=== PATIENT | female | born 2000 | race Two or more races ===

== ENCOUNTER 2023-11-01 14:35 | Emergency (ER) | payer MEDICAID, OTHER ==
[~2023-11-01] VITALS: Ht 175.3 cm; Wt 59.2 kg
[2023-11-01] MEDS: ONDANSETRON ODT 4 MG TAB PO ONE (15:30)
[2023-11-01] MEDS ORDERED: ZOFR4T PO (17:01)
[2023-11-01] MEDS ORDERED: AUG875T PO (17:01)
[2023-11-01] MEDS ORDERED: IBUP-1454 PO (17:01)
[2023-11-01 20:15] VITALS: BP 110/77; PULSE 66; RESP 13; TEMP 98.2; O2SAT 100
== END 2023-11-01 20:23 | disposition home or self-care (01) ==
LOC: ER 14:35
DX: K04.7 Periapical abscess without sinus (principal); M54.2 Cervicalgia
CPT/HCPCS: 76536

== ENCOUNTER 2024-05-26 14:48 | Emergency (ER) | payer MEDICAID ==
[~2024-05-26] VITALS: Ht 175.3 cm; Wt 59.0 kg
[~2024-05-26 14:48] MED LIST: AUG875T PO; IBUP-1454 PO; LIDO2SOL26 MT; METH4PAK PO; PENI500T2 PO; ZOFR4T PO
[2024-05-26 15:08] VITALS: BP 113/70; PULSE 73; RESP 18; O2SAT 100
[2024-05-26] MEDS: SODIUM CHLORIDE 0.9% 1,000 ML IV ONE (15:30)
[2024-05-26] MEDS: PROCHLORPERAZINE EDISYLATE 5 MG/ML 2ML VIAL IV ONE (15:31)
[2024-05-26] MEDS: PANTOPRAZOLE 40 MG/10 ML VIAL INJ IV ONE (15:31)
[2024-05-26 15:45] LABS: Basophils # (auto) 0.1 10 ^3/uL (0-0.2); Basophils % (auto) 0.4 % (0.0-2.0); Eosinophils # (auto) 0.1 10 ^3/uL (0-0.8); Eosinophils % (auto) 0.4 % (0.0-7.0); Hematocrit 37.3 % (36.0-46.0); Hemoglobin 12.4 g/dL (12.2-16.2); Lymphocytes # (auto) 1.4 10 ^3/uL (0.4-5.4); Lymphocytes % (auto) 8.3 % (10.0-50.0); Mean Corpuscular Hemoglobin 29.2 pg (28.0-32.0); Mean Corpuscular Hgb Conc. 33.2 g/dL (32.0-36.0); Monocytes % (auto) 5.6 % (0.0-12.0); Neutrophils # (auto) 14.6 10 ^3/uL (1.6-8.6); Neutrophils % (auto) 85.3 % (37.0-80.0); Platelet Count (auto) 276 10^3/uL (140-450); Red Blood Cells 4.23 10^6/uL (4.0-5.20); Red Cell Distribution Width 15.3 % (11.8-14.3); White Blood Cell 17.2 10^3/uL (4.4-10.8)
[2024-05-26 15:56] LABS: Chloride 106 mmol/L (98-107); Potassium 3.4 mmol/L (3.5-5.1); Sodium 140 mmol/L (136-145)
[2024-05-26 15:57] LABS: Anion Gap 10 (5-15); Calcium 10.2 mg/dL (8.7-10.4); Carbon Dioxide 24 mmol/L (20-31)
[2024-05-26 16:02] LABS: BUN/Creatinine Ratio 12.2 (10.0-20.0); Blood Urea Nitrogen 11 mg/dL (9-23); Glucose 103 mg/dL (74-106)
[2024-05-26 18:15] LABS: Urine Bacteria FEW /hpf (None Seen); Urine Blood 3+ /uL (Negative); Urine Clarity Clear (Clear); Urine Color Yellow (Yellow); Urine Mucus FEW (None Seen); Urine Protein, UAD 1+ (Negative); Urine Urobilinogen Normal (Negative); Urine WBC 4 /hpf (0 - 5); Urine pH 7.5 (5.0-9.0)
[2024-05-26 18:18] LABS: Amphetamine Screen, Urine Neg (NEGATIVE); Barbiturate Scree,Urine Neg (NEGATIVE); Benzodiazephine Screen, Urine Neg (NEGATIVE); Cocaine Screen, Urine Neg (NEGATIVE)
[2024-05-26 18:19] LABS: Cannabinoid Screen, Urine Neg (NEGATIVE); Opiate Scree,Urine Neg (NEGATIVE); Phencyclidine Screen, Urine Neg (NEGATIVE)
[2024-05-26] MEDS ORDERED: PANT40TA2 PO (18:37)
[2024-05-26] MEDS ORDERED: ZOFR4T PO (18:37)
== END 2024-05-26 18:51 | disposition home or self-care (01) ==
LOC: ER 14:48
DX: K52.9 Noninfective gastroenteritis and colitis, unspecified (principal); R10.2 Pelvic and perineal pain; Z98.890 Other specified postprocedural states; Z79.1 Long term (current) use of non-steroidal anti-inflammatories (NSAID); Z79.899 Other long term (current) drug therapy
CPT/HCPCS: 36415; 80048; 80307; 81001; 84702; 85025; 96361; 96374; 96375; 99284; J0780; J2470; J7030

== ENCOUNTER 2024-06-08 22:35 | Emergency (ER) | payer MEDICAID ==
[~2024-06-08] VITALS: Ht 175.3 cm; Wt 60.6 kg
[~2024-06-08 22:35] MED LIST changes: +PANT40TA2 PO
[2024-06-08 22:40] VITALS: BP 98/74; PULSE 18; RESP 18; TEMP 98.6; O2SAT 98
[2024-06-09] MEDS ORDERED: CLIN1CAP70 PO (00:22)
[2024-06-09] MEDS ORDERED: ACET500T58 PO (00:22)
[2024-06-09] MEDS: BENZOCAINE (DENTAL) 20 % SPRAY 60ML MT ONE (00:25)
[2024-06-09] MEDS: cefTRIAXone SOD 1,000 MG VL IM ONE (00:39)
== END 2024-06-09 00:45 | disposition home or self-care (01) ==
LOC: ER 22:35
DX: K04.7 Periapical abscess without sinus (principal); Z79.899 Other long term (current) drug therapy; Z79.1 Long term (current) use of non-steroidal anti-inflammatories (NSAID)
CPT/HCPCS: 96372; 99283; J0696